=== PATIENT | male | born 2000 | race Caucasian/White ===

== ENCOUNTER 2021-12-17 11:02 | Emergency (ER) | payer BC ==
[~2021-12-17] VITALS: Ht 177.8 cm; Wt 84.0 kg
[2021-12-17] MEDS ORDERED: ORPHENADRINE CITRATE 60 MG/2 ML VIAL. IM ONE (11:30)
[2021-12-17] MEDS ORDERED: KETOROLAC 60 MG/2 ML VIAL. IM ONE (11:30)
--- NOTE | 2021-12-17 11:32 | PHYS DOC ---
Past History Past Surgical History: No Surgical History General Adult EDM: Chief Complaint: BACK INJURY HPI: HPI: Patient is a 21-year-old male who presents to the emergency department today for lower back pain that occurred after he was performing a squat in the gym. P atient rates his pain 3 out of 10, it is 5 out of 10 with movement. He describes the pain as a sharp pain. It does radiate down both legs. Worse on the left side. Patient denies any previous back injuries. He denies saddle anesthesias, loss of bowel or bladder, paresthesias. He is able to bear weight and ambulate with a steady gait. Review of Systems: Review of Systems: : See HPI Musculoskeletal: See HPI Neurologic: HPI Allergies: Allergies: Allergies Coded Allergies Type Severity Reaction Last Updated Verified No Known Drug Allergies 12/17/21 No Physical Exam: PE: Constitutional: Well developed, well nourished, no acute distress, non-toxic appearance. [] HENT: Normocephalic, atraumatic, bilateral external ears normal, oropharynx moist, no oral exudates, nose normal. [] Eyes: PERRL, EOMI, conjunctiva normal, no discharge. [] Neck: Normal range of motion, no bony spinal tenderness, supple, no stridor. [] Cardiovascular:Heart rate regular rhythm, no murmur [] Lungs & Thorax: Bilateral breath sounds clear to auscultation [] Abdomen: Bowel sounds normal, soft, no tenderness, no masses, no pulsatile masses. [] Skin: Warm, dry, no erythema, no rash. [] Back: No bony spinal tenderness, no CVA tenderness, left lumbar paraspinal tenderness with palpation. [] Extremities: No tenderness, no cyanosis, no clubbing, ROM intact, no edema. [] Positive left straight leg raise Neurologic: Alert and oriented X 3, normal motor function, normal sensory function, no focal deficits noted. [] Psychologic: Affect normal, judgement normal, mood normal. [] Current Patient Data: Labs: Laboratory Tests Test 12/17/21 11:37 Urine Collection Type Unknown Urine Color Yellow Urine Clarity Clear Urine pH 7.5 Urine Specific [place] 1.020 Urine Protein Neg Urine Glucose (UA) Neg mg/dL Urine Ketones (Stick) Neg mg/dL Urine Blood Neg Urine Nitrite Neg Urine Bilirubin Neg Urine Urobilinogen Dipstick 0.2 mg/dL Urine Leukocyte Esterase Neg Urine RBC 0 /HPF Urine WBC 0 /HPF Urine Squamous Epithelial Cells Occ /LPF Urine Bacteria 0 /HPF Current Medications Medications (Trade) Dose Ordered Sig/Ike Route PRN Reason Start Time Stop Time Status Last Admin Dose Admin Ketorolac Tromethamine (Toradol Im) 60 mg 1X ONCE IM 12/17/21 11:30 12/17/21 11:31 DC 12/17/21 11:30 Orphenadrine Citrate (Norflex) 60 mg 1X ONCE IM 12/17/21 11:30 12/17/21 11:31 DC 12/17/21 11:30 EKG: EKG: [] Radiology/Procedures: Radiology/Procedures: []PROCEDURE: CT LUMBAR SPINE WO CONTRAST CT scan of the lumbar spine without contrast 12/17/2021 CLINICAL HISTORY: Low back pain post squatting. TECHNIQUE: Unenhanced contiguous, 0.625 mm axial sections were obtained through the lumbar spine. 3 mm reconstructed sagittal, axial and coronal images were obtained. One or more of the following individualized dose reduction techniques were utilized for this study: 1. Automated exposure control. 2. Adjustment of the mA and/or kV according to patient size. 3. Use of iterative reconstruction technique. FINDINGS: Sagittal coronal reconstructed images demonstrate minimal S-shaped curvature of the thoracolumbar spine. No fracture or subluxation of the lumbar vertebrae seen. On the axial images no significant degenerative changes are noted. No area of significant central spinal canal or neural foraminal stenosis is seen. IMPRESSION: Negative study. Electronically signed by: Scott Newman MD (12/17/2021 12:33 PM) [id number] DICTATED AND SIGNED BY: SCOTT NEWMAN MD DATE: 12/17/21 1216 CC: EDE BURCH APRN; PCP,NO ~MTH0 0 Heart Score: C/O Chest Pain: N/A Risk Factors: Risk Factors: DM, Current or recent (<one month) smoker, HTN, HLP, family history of CAD, obesity. Risk Scores: Score 0 - 3: 2.5% MACE over next 6 weeks - Discharge Home Score 4 - 6: 20.3% MACE over next 6 weeks - Admit for Clinical Observation Score 7 - 10: 72.7% MACE over next 6 weeks - Early Invasive Strategies Course & Med Decision Making: Course & Med Decision Making Pertinent Labs and Imaging studies reviewed. (See chart for details) [] Patient presents to the emergency department for lower back pain after squatting worse on the left side. Patient does not have any cauda equina symptoms. Imaging was performed of his lumbar spine. Patient was treated with anti-inflammatory and muscle relaxer. Urinalysis did not show any infection. Imaging did not show any acute findings. Patient advised to take anti-infla mmatory medications for his pain, he will be discharged home with muscle relaxers. Advised to rest and apply ice. I discussed with patient all findings and diagnostic testing as well as the need to follow-up with PCP for further evaluation and treatment or return to the ER if any new or worsening symptoms. Strict return precautions were also discussed at length. Patient voiced understanding and agreement with the plan. Patient is hemodynamically stable at the time of disposition. Dragon Disclaimer: Dragon Disclaimer: This electronic medical record was generated, in whole or in part, using a voice recognition dictation system. Departure Departure: Impression: Primary Impression: Back pain Qualified Codes: M54.42 - Lumbago with sciatica, left side Disposition: HOME / SELF CARE / HOMELESS Condition: GOOD Referrals: PCP,NO (PCP) Patient Instructions: Back Exercises, [id number], Back Pain, Adult Additional Instructions: You were seen in the emergency department today for low back pain after squatting at the gym. Imaging performed showed no acute findings. You do not have a urinary tract infection. Treatment for this is anti-inflammatory medi cations and muscle relaxers. You are being discharged home with muscle relaxer. Please use this as directed. This medication may cause sedation so do not take any need to be alert, driving a vehicle or with alcohol. You can also take Tylenol and ibuprofen at home. Follow-up with your primary care provider within a week if your symptoms persist. Return to the emergency department if you develop worsening of your pain, inability to bear weight or walk, loss of bowel or bladder, loss of sensation in your groin or down your legs. Scripts Cyclobenzaprine Hcl (CYCLOBENZAPRINE HCL) 5 Mg Tablet 1 TAB PO TID for spasm for 5 Days, #15 TAB 0 Refills Prov: EDE BURCH APRN 12/17/21 EDE BURCH APRN Dec 17, 2021 11:32
[2021-12-17 12:28] LABS: BACTERIA,URINE 0 /HPF (0-FEW); CLARITY,URINE CLEAR; COLOR,URINE YELLOW; GLUCOSE,URINE NEG (NEG); NITRITE,URINE NEG (NEG); RBC,URINE 0 /HPF (0-2); UROBILINOGEN,URINE 0.2 mg/dL (0.2 mg/dL); WBC,URINE 0 /HPF (0-4)
[2021-12-17 12:29] LABS: SQUAMOUS EPITHELIAL CELL,UR OCC /LPF
--- NOTE | 2021-12-17 12:35 | RAD ---
CT scan of the lumbar spine without contrast 12/17/2021 CLINICAL HISTORY: Low back pain post squatting. TECHNIQUE: Unenhanced contiguous, 0.625 mm axial sections were obtained through the lumbar spine. 3 m m reconstructed sagittal, axial and coronal images were obtained. One or more of the following individualized dose reduction techniques were utilized for this study: 1. Automated exposure control. 2. Adjustment of the mA and/or kV according to patient size. 3. Use of iterative reconstruction technique. FINDINGS: Sagittal coronal reconstructed images demonstrate minimal S-shaped curvature of the thoraco lumbar spine. No fracture or subluxation of the lumbar vertebrae seen. On the axial images no significant degenerative changes are noted. No area of significant central spi nal canal or neural foraminal stenosis is seen. IMPRESSION: Negative study. Electronically signed by: Scott Palacios MD (12/17/2021 12:33 PM) [id number]
[2021-12-17] MEDS ORDERED: CYCL5TAB PO (12:56)
[2021-12-17 13:07] VITALS: BP 111/67
== END 2021-12-17 13:11 | disposition home or self-care (01) ==
LOC: ER 11:02
DX: M54.42 Lumbago with sciatica, left side (principal)
CPT/HCPCS: 72131; 81001; 96372; 99284; J1885; J2360